=== PATIENT | male | born 1970 | race Caucasian/White ===

== ENCOUNTER → 2017-01-07 | Outpatient (CLI) | payer OTHER ==
[~2017-01-07] MED LIST: CLON1TAB3 PO; DEXT20CA PO; PANT40TA PO; RILU50TA PO; [UNRECOGNIZED DRUG - CODE] PO
== END | disposition home or self-care (01) ==
LOC: C.LABPVFM 13:40
PROVIDERS: ATTEND Family Medicine
DX: L03.039 Cellulitis of unspecified toe (principal)

== ENCOUNTER → 2018-03-10 | Outpatient (CLI) | payer OTHER ==
[~2018-03-10] MED LIST changes: +ATV5X PO; -CLON1TAB3 PO; +CLON1TAB4 PO; +RBN1 PO; +RILU1TAB PO; -RILU50TA PO; +ZOLP10TA6 PO; -[UNRECOGNIZED DRUG - CODE] PO
== END | disposition home or self-care (01) ==
LOC: C.LABSPEC 16:48
PROVIDERS: ATTEND Internal Medicine Gastroenterology
DX: R19.7 Diarrhea, unspecified (principal); R63.4 Abnormal weight loss; R13.10 Dysphagia, unspecified